=== PATIENT | female | born 1950 | race Caucasian/White ===

== ENCOUNTER → 2017-11-16 14:50 | Outpatient (CLI) | payer MEDICARE, BC, SELFPAY ==
--- NOTE | 2017-11-16 15:40 | EKG12_ITS ---
Test Reason : PRE OP Blood Pressure : / mmHG Vent. Rate : 067 BPM Atrial Rate : 067 BPM P-R Int : 160 ms QRS Dur : 090 ms QT Int : 400 ms P-R-T Axes : 023 027 065 degrees QTc Int : 422 ms Sinus rhythm with Premature atrial complexes Otherwise normal ECG Confirmed by CLARENCE PARTIDA, NOHEMI ([id number]), mapping editor LISE GUAN ([id number]) on 11/17/2017 2:30:19 PM Referred By: Marcus Peterson Confirmed By:NOHEMI LIMA MD
[2017-11-16 16:50] LABS: Hematocrit 40.7 % (37-47); Hemoglobin 13.4 g/dl (12.0-15.0); Mean Corp Hgb Conc 32.9 g/gl (32-36); Mean Corpuscular Hgb 29.2 pg (27.0-32.0); Mean Corpuscular Volume 88.7 fL (81-99); Mean Platelet Vol. 9.7 fl (6.2-12.0); Platelet Count 198 K/mm3 (150-450); RBC Distribution Width CV 13.4 % (11.6-14.6); Red Blood Count 4.59 M/mm3 (4.2-5.4); White Blood Count 6.4 K/mm3 (4.4-11.0)
[2017-11-16 17:08] LABS: Scan Indicated on CBC? Y/N NO
[2017-11-16 17:15] LABS: Anion Gap 8 (5-15); BUN 16 mg/dL (7-18); BUN/Creat Ratio 23.6 RATIO (10-20); Calcium,Total 9.1 mg/dL (8.5-10.1); Chloride 104 mmol/L (98-107); Creatinine, Serum 0.68 mg/dL (0.55-1.02); EST Glomerular Filtration Rate 92 mL/min (>60); Est Glom Filt Rate - Afr Amer 111 mL/min (>60); Glucose 104 mg/dL (74-106); Potassium 3.3 mmol/L (3.5-5.1); Sodium Level 141 mmol/L (136-145)
[2017-11-22 12:55] VITALS: BP 143/78; PULSE 67; RESP 16; TEMP 36.6; O2SAT 97; BMI 31.7
== END ==
LOC: SDC 11-22 12:22 → AC 11-22 12:25 → PAT 12-22 14:50
PROVIDERS: Family Provider Internal Medicine; PCP Internal Medicine; Visit Provider Surgery
DX: Z01.812 Encounter for preprocedural laboratory examination (principal); I10 Essential (primary) hypertension; G47.30 Sleep apnea, unspecified; Z72.0 Tobacco use
CPT/HCPCS: 36415; 80048; 85027; 93005; J7120

== ENCOUNTER 2017-12-24 08:59 | Inpatient (IN) | payer MEDICARE, BC, SELFPAY ==
[2017-12-24] VITALS (15 sets, daily range): BP systolic 125–158; BP diastolic 60–91; PULSE 65–84; RESP 16–18; TEMP 36.3–37.1; O2SAT 90–99; BMI 32.0
[2017-12-24 06:21] LABS: Hematocrit 41.1 % (37-47); Hemoglobin 13.8 g/dl (12.0-15.0); Mean Corp Hgb Conc 33.6 g/gl (32-36); Mean Corpuscular Hgb 29.3 pg (27.0-32.0); Mean Corpuscular Volume 87.3 fL (81-99); Mean Platelet Vol. 9.4 fl (6.2-12.0); Platelet Count 212 K/mm3 (150-450); RBC Distribution Width CV 13.5 % (11.6-14.6); RBC Distribution Width SD 42.1 fl (35.1-43.9); Red Blood Count 4.71 M/mm3 (4.2-5.4); White Blood Count 6.9 K/mm3 (4.4-11.0)
[2017-12-24 06:26] LABS: Scan Indicated on CBC? Y/N NO
[2017-12-24 06:50] LABS: Anion Gap 9 (5-15); BUN 12 mg/dL (7-18); BUN/Creat Ratio 17.5 RATIO (10-20); Chloride 107 mmol/L (98-107); Creatinine, Serum 0.69 mg/dL (0.55-1.02); EST Glomerular Filtration Rate 91 mL/min (>60); Est Glom Filt Rate - Afr Amer 110 mL/min (>60); Estimated Creatinine Clearance 47.14 ml/min; Glucose 110 mg/dL (74-106); Potassium 3.1 mmol/L (3.5-5.1); Sodium Level 141 mmol/L (136-145)
--- NOTE | 2017-12-24 07:07 | PCM.DC.GS ---
Discharge Diet: Light diet - advance as tolerated - if you have questions about your diet instructions, please talk to you doctor. Discharge Activity: May Not Drive - for 1 week or while taking narcotic pain medicine. May shower in (days): 1 Lifting Restrictions: 10 pounds Call your doctor if your incision/area has: Continuous Slow Oozing, Sudden Increased Bleeding, Increased Pain/ Swelling, Increased Redness, Foul Smelling Discharge Call your doctor if you observe: Fever of 101 or Higher Suture Line Care: Avoid Pulling/Pushing, Avoid Pinching/Bending Additional Dressing/Incision Instructions:: Change or remove dressing in 4 days. Leave steri-strips in place for 1 week. Allergies/Adverse Reactions: Allergies Penicillins Allergy (Verified 12/23/17 11:32) Rash Medications to take at Discharge atenolol 25 mg tablet 25 mg PO QHS 11/02/17 fenofibrate 54 mg tablet 54 mg PO QHS 11/02/17 niacin 50 mg tablet 50 mg PO QHS 11/02/17 Hydroeye 2 tab PO BID 11/15/17 Nortriptyline HCl [Pamelor] 20 mg PO QHS PRN PRN 11/15/17 Amlodipine [Norvasc] 5 mg PO DAILY 12/24/17 Hydrocodone Bitart/Apap 5-325 [[place] 5MG-325MG] 1 tablet PO Q6H PRN PRN 4 Days #15 tablet 12/24/17 Potassium Chloride [K-Dur] 20 meq PO TID 12/24/17 The following prescriptions were given: Hydrocodone Bitart/Apap 5-325 [[place] 5MG-325MG] 1 tablet PO Q6H PRN PRN 4 Days #15 tablet PRN Reason: Pain Primary Care Physician: Fannie Lopez MD [Primary Care Provider] - Please Follow Up With: Marcus Peterson MD - [phone] When: Call to make an appointment to be seen in about 10 days.
[2017-12-24] MEDS: Clindamycin 900 MG/50 ML BAG 75 MG IV (07:14)
--- NOTE | 2017-12-24 07:15 | HERN_PTH ---
PATIENT: AZAM REDDY LOC: MS3 U#:[id number] AGE/SX: 67/F ROOM: MS303 RE12/26/[address]: Dr. Marcus Peterson MD : [id number] BED: 1 DIS: 12/27/2017 SPEC #: [id number] RECD: 12/24/17 11:31 STATUS: EDNA DANIELDeidra #: [id number] KARLA: 12/24/17 07:[address]: Marcus Peterson DEPT: SURGICAL PATHOLOGY RECD BY: Yahir Shen ENTERED: 12/24/17 11:31 SP TYPE: Hernia OTHR DR: Dr. Fannie Lopez MD Tissues: HERNIA Procedures: Surgery Specimen Level II HEADER OPERATION: Laparoscopic ventral hernia repair PRE-OP DIAGNOSIS: Ventral incisional hernia without obstruction or gangrene TISSUE SUBMITTED: Hernia sac and contents MICROSCOPIC DIAGNOSIS Ventral hernia sac, herniorrhaphy: Hernia sac with fibrosis and minimal chronic inflammation. Benign histiocytic proliferation surrounding non-polarizable material. AM:juan jose 12/27/17 MICROSCOPIC DESCRIPTION Slides are reviewed. GROSS DESCRIPTION Received in fixative is one container labeled with the patient's name and designated hernia sac and contents. The specimen consists of a piece of fibroadipose tissue measuring 6 x 5 x 1 cm. No mass lesion is identified. Cager Operator sections are submitted in one cassette. / SJ:juan jose 12/24/17 TC:5 CPT: 12009
[2017-12-24] MEDS: BUPIVACAINE LIPOSOME/PF 20 ML VIAL OPERA.SITE (07:33)
[2017-12-24] MEDS: Bupivacaine Mpf 0.5% 30 ML VIAL (08:45)
--- NOTE | 2017-12-24 08:53 | PCM.OPRPT ---
Problem List (1) Ventral incisional hernia without obstruction or gangrene Status: Acute Report of Operation Date of Procedure: 12/24/17 Pre-Operative Diagnosis: Ventral incisional hernia Post-Operative Diagnosis: Periumbilical ventral incisional hernia Surgery/Procedure Performed:: Hybrid open and laparoscopic ventral incisional herniorrhaphy with ventral light ST mesh 17.8 x 22.9 cm. Reference #[id number]. Lot number [id number]. Expiration 02/05/2019 Description of Surgical Findings:: Timeout and informed consent was obtained. 67-year-old female was taken the operating place upon the table and underwent general endotracheal intubation anesthesia. Clindamycin 900 mg were given intravenous preoperatively. The abdomen was sterilely prepped and draped. Ioban draping was utilized as well. Patient had a complex multi-defect ventral incisional hernia based at the umbilicus based upon previous colon surgery performed elsewhere. Superior the umbilicus a vertical incision was created sharp dissection carried down through the substance tissue hernia sac was encountered unfortunately there were multiple adhesions of omentum to the sac these had to be bluntly and sharply dissected free hemostasis was obtained where indicated with 0 Vicryl ties. Then more extensive dissection was required intra-abdominal the surrounding the periphery of the incision secondary to additional omental adhesions. Electrocautery was used to assist with this finally all of those adhesions were freed up. I then partially approximated the fascia superior and inferiorly with ousjxq-la-ngntm sutures of 0 Nurolon plate. I placed a Vazquez catheter. The abdomen was insufflated with CO2 and to 500 ports were placed far laterally in the left and to far laterally on the right. The falciform ligament was incised to allow for placement of the mesh. Then a tap block was performed circumferentially around the mid abdomen all the way up to the epigastrium bilaterally. I did this with Exparel 20 cc diluted with 60 cc of saline. Compazine entire periphery under direct laparoscopic visualization. Then I placed the ventral light ST mesh. I had already placed 4 corner sutures of 2-0 Prolene. The mesh was unfurled. Using a grainy needle and stab incisions the 4 corners were parachuted up to the abdominal wall and secured in place. Absolutely perfect approximation position was achieved. I used secure tack at the periphery at about 2 cm intervals to secure the mesh and had several attacks left over to approximate the mesh centrally to avoid seroma formation. Excellent coverage of the defect area had been achieved. The secure strap was lot number [id number] for each of them. I removed the Vazquez catheter at the umbilicus and repaired that final defect with a ikltun-kp-oqhle suture of 0 Nurolon. The abdomen was allowed to deflate of CO2. The skin edges approximated up to 4 Monocryl subdermal stitches. Cottonball Telfa and OpSite dressing placed at the umbilicus. Telfa OpSite to the other dressings. Sponge instrument and needle counts were reported to the surgeon to be correct. Blood loss was very minimal. There were no apparent complications and she was taken to the recovery room in condition. Marcus Peterson M.D., F.A.C.S.
--- NOTE | 2017-12-24 08:58 | OP.PCM_ITS ---
Problem List (1) Ventral incisional hernia without obstruction or gangrene Status: Acute Report of Operation Date of Procedure: 12/24/17 Pre-Operative Diagnosis: Ventral incisional hernia Post-Operative Diagnosis: Periumbilical ventral incisional hernia Surgery/Procedure Performed:: Hybrid open and laparoscopic ventral incisional herniorrhaphy with ventral light ST mesh 17.8 x 22.9 cm. Reference #[id number]. Lot number [id number]. Expiration 02/05/2019 Description of Surgical Findings:: Timeout and informed consent was obtained. 67-year-old female was taken the operating place upon the table and underwent general endotracheal intubation anesthesia. Clindamycin 900 mg were given intravenous preoperatively. The abdomen was sterilely prepped and draped. Ioban draping was utilized as well. Patient had a complex multi-defect ventral incisional hernia based at the umbilicus based upon previous colon surgery performed elsewhere. Superior the umbilicus a vertical incision was created sharp dissection carried down through the substance tissue hernia sac was encountered unfortunately there were multiple adhesions of omentum to the sac these had to be bluntly and sharply dissected free hemostasis was obtained where indicated with 0 Vicryl ties. Then more extensive dissection was required intra-abdominal the surrounding the periphery of the incision secondary to additional omental adhesions. Electrocautery was used to assist with this finally all of those adhesions were freed up. I then partially approximated the fascia superior and inferiorly with rzrrrb-sb-swpxx sutures of 0 Nurolon plate. I placed a Vazquez catheter. The abdomen was insufflated with CO2 and to 500 ports were placed far laterally in the left and to far laterally on the right. The falciform ligament was incised to allow for placement of the mesh. Then a tap block was performed circumferentially around the mid abdomen all the way up to the epigastrium bilaterally. I did this with Exparel 20 cc diluted with 60 cc of saline. Compazine entire periphery under direct laparoscopic visualization. Then I placed the ventral light ST mesh. I had already placed 4 corner sutures of 2-0 Prolene. The mesh was unfurled. Using a grainy needle and stab incisions the 4 corners were parachuted up to the abdominal wall and secured in place. Absolutely perfect approximation position was achieved. I used secure tack at the periphery at about 2 cm intervals to secure the mesh and had several attacks left over to approximate the mesh centrally to avoid seroma formation. Excellent coverage of the defect area had been achieved. The secure strap was lot number [id number] for each of them. I removed the Vazquez catheter at the umbilicus and repaired that final defect with a hkmigt-wq-veoyp suture of 0 Nurolon. The abdomen was allowed to deflate of CO2. The skin edges approximated up to 4 Monocryl subdermal stitches. Cottonball Telfa and OpSite dressing placed at the umbilicus. Telfa OpSite to the other dressings. Sponge instrument and needle counts were reported to the surgeon to be correct. Blood loss was very minimal. There were no apparent complications and she was taken to the recovery room in condition. Marcus Peterson M.D., F.A.C.S.
--- NOTE | 2017-12-24 09:17 | NURSING ---
ANESTHESIA MEDICATED PT. WITH 50MCG OF FENTANYL UPON COMPLETION OF SURGERY.
[2017-12-24] MEDS: Ketorolac 15 MG/ML Vial IV (10:32)
[2017-12-24] MEDS: Lactated Ringers 1,000 ML 60 ML IV ×2 (11:05→17:03)
--- NOTE | 2017-12-24 17:54 | PCM.PN.SRG ---
Subjective: Pt c/o pain despite extensive nerve blocks - Physical Exam Vital Signs Temp Pulse Resp BP Pulse Ox 98.6 F 84 18 125/60 H 93 12/24/17 14:44 12/24/17 14:44 12/24/17 14:44 12/24/17 14:44 12/24/17 14:44 Oxygen Flow Rate (L/min) 3 Oxygen Delivery Method Nasal Cannula Weight: 186 lb 11.704 oz Body Mass Index (BMI) 32.0 Intake and Output for Last 24 Hours 12/22/17 12/23/17 12/24/17 23:59 23:59 23:59 Intake Total 1973 Output Total 150 / 150 Balance 1824 / 1824 Laboratory Tests Past 24 Hrs 12/24/17 12/24/17 06:15 06:15 WBC 6.9 RBC 4.71 Hgb 13.8 Hct 41.1 MCV 87.3 MCH 29.3 MCHC 33.6 RDW 13.5 RDW Differential 42.1 Plt Count 212 MPV 9.4 Sodium 141 Potassium 3.1 L Chloride 107 Carbon Dioxide 25.0 Anion Gap 9 BUN 12 Creatinine 0.69 Estim Creat Clear Calc 47.14 Est GFR (MDRD) Af Amer 110 Est GFR (MDRD) Non-Af 91 BUN/Creatinine Ratio 17.5 Glucose 110 H Calcium 9.0 Medical Necessity - Tobacco Use Smoking Status: Former smoker Assessment/Plan Will offer anxiolytics and NSAIDS Pt encouraged to mobilize
[2017-12-24] MEDS: LORazepam 2 MG/ML Syringe 0.5 MG IV (17:57)
[2017-12-24] MEDS: HYDROmorphone 1 MG/ML Syringe IV ×2 (19:35→23:22)
--- NOTE | 2017-12-24 20:10 | NURSING ---
Pt up to bathroom. Yelling/screaming when assisted back to bed. C/O horrible pain Gave dilaudid for pain. Pain reevaluated after 15 minutes, pt sleeping. No distress noted. Continuous Spo2 on.
[2017-12-24] MEDS: Atenolol 25 MG Tablet PO (22:36)
[2017-12-24] MEDS: Fenofibrate 48 MG Tablet PO (22:36)
[2017-12-25 02:20] VITALS: BP 143/75; PULSE 76; RESP 18; TEMP 36.7; O2SAT 94
[2017-12-25] MEDS: Ketorolac 15 MG/ML Vial IV ×2 (02:40→12:57)
[2017-12-25] MEDS: HYDROmorphone 0.5 MG/0.5 ML SYRINGE IV (05:43)
--- NOTE | 2017-12-25 06:17 | PCM.PN.SRG ---
Subjective: Pt was very painful yesterday--better today. No nausea - Physical Exam Lungs: - - shallow, clear Abdomen: Soft, Hypoactive Bowel Sounds, Distended Vital Signs Temp Pulse Resp BP Pulse Ox 98.0 F 76 18 143/75 H 94 12/25/17 02:20 12/25/17 02:20 12/25/17 02:20 12/25/17 02:20 12/25/17 02:20 Oxygen Flow Rate (L/min) 4 Oxygen Delivery Method Nasal Cannula Weight: 186 lb 11.704 oz Body Mass Index (BMI) 32.0 Intake and Output for Last 24 Hours 12/23/17 12/24/17 12/25/17 23:59 23:59 23:59 Intake Total 2478 / 2478 760 / 760 Output Total 300 / 300 350 / 350 Balance 2178 / 2178 410 / 410 Laboratory Tests Past 24 Hrs 12/24/17 12/24/17 06:15 06:15 WBC 6.9 RBC 4.71 Hgb 13.8 Hct 41.1 MCV 87.3 MCH 29.3 MCHC 33.6 RDW 13.5 RDW Differential 42.1 Plt Count 212 MPV 9.4 Sodium 141 Potassium 3.1 L Chloride 107 Carbon Dioxide 25.0 Anion Gap 9 BUN 12 Creatinine 0.69 Estim Creat Clear Calc 47.14 Est GFR (MDRD) Af Amer 110 Est GFR (MDRD) Non-Af 91 BUN/Creatinine Ratio 17.5 Glucose 110 H Calcium 9.0 Medical Necessity - Tobacco Use Smoking Status: Former smoker Assessment/Plan Pt needs to mobilize and use IS MUCH encouragement offered Possible discharge later today
[2017-12-25] MEDS: Enoxaparin 40 MG/0.4 ML Syringe SC (06:43)
[2017-12-25 07:59] VITALS: O2SAT 94
[2017-12-25 08:20] VITALS: BP 134/78; PULSE 75; RESP 18; TEMP 36.9; O2SAT 92
[2017-12-25] MEDS: Lactated Ringers 1,000 ML 30 ML IV (09:53)
[2017-12-25] MEDS: amLODIPine 5 MG Tablet PO (09:54)
[2017-12-25] MEDS: HYDROcodone Bitartrate/Apap 5/325 Tablet PO ×2 (09:54→16:09)
--- NOTE | 2017-12-25 10:46 | NURSING ---
Explained to pt importance of early ambulation to prevent post op complications. Also encouraged use of IS, pt able to provide appropriate demonstration. Encouraged to use 10x/hour.
--- NOTE | 2017-12-25 12:02 | NURSING ---
Called and spoke with Dr Peterson regarding pt's progress throughout morning. Explained to him that pt is still experiencing significant pain with movement and that breaths become shallow when pt is in pain. When pt is resting in bed, she states her pain is near 0. Pt has been started on [place] 2 tabs as ordered; however, pt still requests IV pain medication for breakthrough pain. Dr Peterson states ok to continue to give IV meds if pt needs them. Pt has been up to chair this morning for 1.5 hours and ambulated in hallway. Encouraged pt to use IS every hour. Pt currently back in bed, encouraged pt to get up for lunch.
[2017-12-25] MEDS: 0.9% NaCl Peripheral Flush Adult/Peds IV (12:57)
--- NOTE | 2017-12-25 13:03 | NURSING ---
Pt found ambulating in hallway with daughter. Pt's pulse ox reading on RA 83%. Pt denies feeling SOB, denies chest pain. Applied O2 via portable tank so pt could finish her walk. Pulse ox increased to 92% on 4LNC
[2017-12-25 15:00] VITALS: BP 129/60; PULSE 78; RESP 16; TEMP 36.9; O2SAT 95
[2017-12-25 19:48] VITALS: BP 160/85; PULSE 88; RESP 18; TEMP 36.6; O2SAT 93
[2017-12-25] MEDS: Lactulose 20 GM/30 ML UDC PO (21:01)
[2017-12-25] MEDS: Atenolol 25 MG Tablet PO (21:01)
[2017-12-25] MEDS: Fenofibrate 48 MG Tablet PO (21:01)
[2017-12-25 21:55] VITALS: O2SAT 92
[2017-12-26] VITALS (11 sets, daily range): BP systolic 150–163; BP diastolic 73–96; PULSE 70–91; RESP 16–18; TEMP 35.9–37.7; O2SAT 88–95
[2017-12-26] MEDS: Ketorolac 15 MG/ML Vial IV ×2 (01:47→20:36)
[2017-12-26] MEDS: Acetaminophen/Codeine #3 Tablet PO ×2 (02:23→20:36)
[2017-12-26] MEDS: Enoxaparin 40 MG/0.4 ML Syringe SC (05:04)
--- NOTE | 2017-12-26 06:07 | PCM.PN.SRG ---
Subjective: Pt c/o gas pains and nausea. Still on oxygen - Physical Exam General: Alert, Oriented x3 Lungs: Clear to auscultation, - - diminished in bases Abdomen: Bowel Sounds Present, Soft, Distended, Tender Vital Signs Temp Pulse Resp BP Pulse Ox 99.8 F H 82 18 155/96 H 92 12/26/17 02:19 18 02:19 18 02:19 12/26/17 02:19 12/26/17 02:19 Oxygen Flow Rate (L/min) 4 Oxygen Delivery Method Nasal Cannula Weight: 186 lb 11.704 oz Body Mass Index (BMI) 32.0 Intake and Output for Last 24 Hours 12/24/17 12/25/17 12/26/17 23:59 23:59 23:59 Intake Total 2478 / 2478 2734 / 2734 1056 / 1056 Output Total 300 / 300 350 / 350 Balance 2178 / 2178 2384 / 2384 1056 / 1056 Medical Necessity - Tobacco Use Smoking Status: Former smoker Assessment/Plan Pt is passing significant flatus but is distended States pain better Still on oxygen Will advance diet Hopeful discharge later today May need home oxygen
[2017-12-26] MEDS: Ondansetron 4 MG/2 ML Vial IV (09:28)
[2017-12-26] MEDS: amLODIPine 5 MG Tablet PO (09:30)
[2017-12-26] MEDS: HYDROcodone Bitartrate/Apap 5/325 Tablet PO (13:27)
--- NOTE | 2017-12-26 14:36 | RAD_ITS ---
STUDY: X-RAY - ABDOMEN/PELVIS REASON FOR EXAM: Female, 67 years old. Abdominal pain after hernia repair. TECHNIQUE: AP supine and upright views of the abdomen and pelvis. COMPARISON: Radiographs of the chest and abdomen dated September 22, 2007. FINDINGS: Normal visualized lung bases. There are multiple air-fluid levels in the upper abdomen suggesting possible ileus or bowel obstruction. There is no demonstrated free abdominal air. There is no obvious organomegaly, mass or pathologic calcifications. Normal soft tissue structures. Normal visualized osseous structures. RAD/Abd Decub and/or Erect(Portabl IMPRESSION: Possible ileus of the upper abdomen versus small bowel obstruction. Electronically Signed: Faby Whipple MD at 15:35 EDT , Service support ,
--- NOTE | 2017-12-26 15:07 | RAD_ITS ---
STUDY: X-RAY CHEST REASON FOR EXAM: Female, 67 years old. Shortness of breath status post hernia repair. TECHNIQUE: PA and lateral views of the chest. COMPARISON: February 22, 2008. FINDINGS: Right lower lung airspace opacities. There is left upper lung granuloma. There is no demonstrated pleural abnormality. There is mild cardiac enlargement. Normal mediastinum and kannan. Normal visualized pulmonary arteries. Normal visualized aortic arch and descending thoracic aorta. There are diffuse degenerative changes of the visualized thoracic spine. Normal visualized ribs, clavicles, and shoulders. There is no demonstrated abnormality of the visualized soft tissue structures of the upper abdomen. RAD/Chest PA and Lateral IMPRESSION: Right lower lung infiltrate. Electronically Signed: Devonte Ashley MD at 15:46 EDT , Service support ,
[2017-12-26 15:09] LABS: Absolute Neutrophil Count 7.7 X10^3/uL (2.0-7.7); Basophil# 0.01 X10^3/uL; Basophil% 0.1 % (0-1); Eosinophil# 0.02 X10^3/uL; Eosinophils% 0.2 % (0-5); Hematocrit 38.3 % (37-47); Hemoglobin 12.6 g/dl (12.0-15.0); Lymphocyte % 13.7 % (19-41); Mean Corp Hgb Conc 32.9 g/gl (32-36); Mean Corpuscular Hgb 29.1 pg (27.0-32.0); Mean Corpuscular Volume 88.5 fL (81-99); Mean Platelet Vol. 9.8 fl (6.2-12.0); Monocyte# 1.04 X10^3/uL; Monocyte% 10.2 % (0-10); Neutrophil # 7.73 X10^3/uL (2.7-7.7); Neutrophil % 75.6 % (47-70); POSITIVE COUNT NO; POSITIVE DIFFERENTIAL NO; POSITIVE MORPHOLOGY NO; Platelet Count 192 K/mm3 (150-450); RBC Distribution Width CV 13.5 % (11.6-14.6); RBC Distribution Width SD 43.7 fl (35.1-43.9); Red Blood Count 4.33 M/mm3 (4.2-5.4); White Blood Count 10.2 K/mm3 (4.4-11.0)
[2017-12-26 15:20] LABS: Anion Gap 8 (5-15); BUN 8 mg/dL (7-18); BUN/Creat Ratio 11.4 RATIO (10-20); Calcium,Total 8.9 mg/dL (8.5-10.1); Chloride 104 mmol/L (98-107); EST Glomerular Filtration Rate 89 mL/min (>60); Est Glom Filt Rate - Afr Amer 107 mL/min (>60); Estimated Creatinine Clearance 47.14 ml/min; Glucose 142 mg/dL (74-106); Potassium 3.6 mmol/L (3.5-5.1); Sodium Level 138 mmol/L (136-145)
[2017-12-26] MEDS: Furosemide 20 MG/2 ML VIAL IV (16:57)
[2017-12-26] MEDS: 0.9% NaCl Peripheral Flush Adult/Peds IV (16:57)
[2017-12-26] MEDS: Fenofibrate 48 MG Tablet PO (20:39)
[2017-12-26] MEDS: Atenolol 25 MG Tablet PO (20:39)
[2017-12-27 03:03] VITALS: BP 140/65; PULSE 68; RESP 16; TEMP 37.1; O2SAT 91
[2017-12-27 05:00] VITALS: BP 151/76; PULSE 75; PULSE 76; RESP 16; RESP 18; TEMP 37.2; O2SAT 90
[2017-12-27] MEDS: Enoxaparin 40 MG/0.4 ML Syringe SC (05:44)
--- NOTE | 2017-12-27 06:00 | PCM.PN.SRG ---
Subjective: Pt feeling better today Had stool yesterday Not much appetite Oxygen saturation improved with furosemide yesterday. IVF held - Physical Exam Lungs: - - slight rales on right Abdomen: Bowel Sounds Present, Soft, Non Tender Vital Signs Temp Pulse Resp BP Pulse Ox 98.9 F 75 18 151/76 H 90 12/27/17 05:00 12/27/17 05:00 12/27/17 05:00 12/27/17 05:00 12/27/17 05:00 Oxygen Flow Rate (L/min) [At 2 REST on Room Air] Oxygen Flow Rate (L/min) 4 Oxygen Delivery Method Nasal Cannula Weight: 186 lb 11.704 oz Body Mass Index (BMI) 32.0 Intake and Output for Last 24 Hours 12/25/17 12/26/17 12/27/17 23:59 23:59 23:59 Intake Total 2734 / 2734 1984 120 / 120 Output Total 350 / 350 Balance 2384 / 2384 1984 120 / 120 Laboratory Tests Past 24 Hrs 12/26/17 12/26/17 14:58 14:58 WBC 10.2 RBC 4.33 Hgb 12.6 Hct 38.3 MCV 88.5 MCH 29.1 MCHC 32.9 RDW 13.5 RDW Differential 43.7 Plt Count 192 MPV 9.8 Immature Gran % (Auto) 0.200 Neut % (Auto) 75.6 H Lymph % (Auto) 13.7 L [place] % (Auto) 10.2 H Eos % (Auto) 0.2 Baso % (Auto) 0.1 Absolute Neuts (auto) 7.7 Absolute Lymphs (auto) 1.40 Total Counted Not Reportable Sodium 138 Potassium 3.6 Chloride 104 Carbon Dioxide 26.0 Anion Gap 8 BUN 8 Creatinine 0.70 Estim Creat Clear Calc 47.14 Est GFR (MDRD) Af Amer 107 Est GFR (MDRD) Non-Af 89 BUN/Creatinine Ratio 11.4 Glucose 142 H Calcium 8.9 Medical Necessity - Tobacco Use Smoking Status: Former smoker Assessment/Plan Again encouraged IS and mobilization. Pt again in bed this a.m. Will give more furosemide Again encouraged to be OOB
[2017-12-27] MEDS: Furosemide 20 MG/2 ML VIAL IV (06:17)
[2017-12-27] MEDS: Ketorolac 15 MG/ML Vial IV (06:17)
[2017-12-27 07:39] VITALS: BP 148/88; PULSE 72; RESP 18; TEMP 37.1; O2SAT 97
[2017-12-27 08:01] VITALS: RESP 18; O2SAT 97
--- NOTE | 2017-12-27 10:45 | CASEMGMT ---
BRETT BARAHONA Face to Face with patient for initial transition planning/care coordination assessment. RN CM introduced self and role at [facility]. Patient sitting in chair, alert and oriented. Patient willing to participate in assessment and is able to answer all questions appropriately. Care providers, pharmacy, and demographics verified. Patient wishes to discharge home, denies need for home health at this time. Patient states that she has a CPap at home. Pat states she has no further needs or concerns at this time. CM to follow for discharge planning needs that may arise. Disposition Plan: Patient to discharge home with family support and follow-up plans in place.
--- NOTE | 2017-12-27 10:55 | NURSING ---
pt has been off o2 for over 1 hour, pt ambulatory in hallway nnumerous times, using I.S. hourly walking POX on room air is 93%, crackles only heard, posteriorly in bases
--- NOTE | 2017-12-27 15:28 | PCM.DC.SUM ---
Discharge Date and Diagnosis Date of Admission: 12/24/17 Date of Discharge: 12/27/17 - Primary Discharge Diagnosis Ventral hernia - Secondary Discharge Diagnosis Chronic Problems (Last Reviewed 12/13/17 @ 14:56 by Savannah Plata) Hypertension (Chronic) Hospital Course and Treatment Operations: herniorrhaphy - Laparoscopic and open incisional ventral hernia repair with mesh Summary of Care Provided: The patient is a 67 year old F who presented for an elective ventral incisional hernia repair. Dr. Peterson performed a laparoscopic and open incisional ventral hernia repair on 12/24/17. Patient tolerated the procedure well. Patient was noted to have difficulty with her oxygen level dropping when up and ambulating. Patient also had bilateral rales. She was given two doses of Furosemide. Upon discharge, patient's oxygen saturation remained normal when testing for home O2. She denies chest pain, shortness of breath. She notes abdominal discomfort with movement. She is tolerating a diet well. She denies fever. She is urinating well. She has positive flatus. Patient is instructed to follow-up in our office post-operatively. Discharge Diet: Light diet - advance as tolerated - if you have questions about your diet instructions, please talk to you doctor. Discharge Activity: May Not Drive - for 1 week or while taking narcotic pain medicine. May shower in (days): 1 Call your doctor if your incision/area has: Continuous Slow Oozing, Sudden Increased Bleeding, Increased Pain/ Swelling, Increased Redness, Foul Smelling Discharge Call your doctor if you observe: Fever of 101 or Higher Suture Line Care: Avoid Pulling/Pushing, Avoid Pinching/Bending Additional Dressing/Incision Instructions:: Change or remove dressing in 4 days. Leave steri-strips in place for 1 week. Home Medications: Medications to take at Discharge atenolol 25 mg tablet 25 mg PO QHS 11/02/17 fenofibrate 54 mg tablet 54 mg PO QHS 11/02/17 niacin 50 mg tablet 50 mg PO QHS 11/02/17 Hydroeye 2 tab PO BID 11/15/17 Nortriptyline HCl [Pamelor] 20 mg PO QHS PRN PRN 11/15/17 Amlodipine [Norvasc] 5 mg PO DAILY 12/24/17 Hydrocodone Bitart/Apap 5-325 [[place] 5MG-325MG] 1 tablet PO Q6H PRN PRN 4 Days #15 tablet 12/24/17 Potassium Chloride [K-Dur] 20 meq PO TID 12/24/17 Oxygen, Home [Home Oxygen] 2 lpm NASAL CONT 3 Days #1 unit 12/26/17 Following Prescrptions Were Given to Patient: Hydrocodone Bitart/Apap 5-325 [[place] 5MG-325MG] 1 tablet PO Q6H PRN PRN 4 Days #15 tablet PRN Reason: Pain Oxygen, Home [Home Oxygen] 2 lpm NASAL CONT 3 Days #1 unit Primary Care Physician: Fannie Lopez MD [Primary Care Provider] - Please Follow Up With: Marcus Peterson MD - [phone] When: Call to make an appointment to be seen in about 10 days. Disposition: Home Minutes spent on discharge:: 25 Patient Condition:: Stable Medical Necessity - Tobacco Use Smoking Status: Former smoker Meaningful Use Info Meaningful Use Diagnoses (Choose all that apply): None applicable Code Visit Inpatient E&M: 15702 Disch Hosp
--- NOTE | 2017-12-27 15:35 | DS.PCM_ITS ---
Discharge Date and Diagnosis Date of Admission: 12/24/17 Date of Discharge: 12/27/17 - Primary Discharge Diagnosis Ventral hernia - Secondary Discharge Diagnosis Chronic Problems (Last Reviewed 12/13/17 @ 14:56 by Savannah Plata) Hypertension (Chronic) Hospital Course and Treatment Operations: herniorrhaphy - Laparoscopic and open incisional ventral hernia repair with mesh Summary of Care Provided: The patient is a 67 year old F who presented for an elective ventral incisional hernia repair. Dr. Peterson performed a laparoscopic and open incisional ventral hernia repair on 12/24/17. Patient tolerated the procedure well. Patient was noted to have difficulty with her oxygen level dropping when up and ambulating. Patient also had bilateral rales. She was given two doses of Furosemide. Upon discharge, patient's oxygen saturation remained normal when testing for home O2. She denies chest pain, shortness of breath. She notes abdominal discomfort with movement. She is tolerating a diet well. She denies fever. She is urinating well. She has positive flatus. Patient is instructed to follow-up in our office post-operatively. Discharge Diet: Light diet - advance as tolerated - if you have questions about your diet instructions, please talk to you doctor. Discharge Activity: May Not Drive - for 1 week or while taking narcotic pain medicine. May shower in (days): 1 Call your doctor if your incision/area has: Continuous Slow Oozing, Sudden Increased Bleeding, Increased Pain/ Swelling, Increased Redness, Foul Smelling Discharge Call your doctor if you observe: Fever of 101 or Higher Suture Line Care: Avoid Pulling/Pushing, Avoid Pinching/Bending Additional Dressing/Incision Instructions:: Change or remove dressing in 4 days. Leave steri-strips in place for 1 week. Home Medications: Medications to take at Discharge atenolol 25 mg tablet 25 mg PO QHS 11/02/17 fenofibrate 54 mg tablet 54 mg PO QHS 11/02/17 niacin 50 mg tablet 50 mg PO QHS 11/02/17 Hydroeye 2 tab PO BID 11/15/17 Nortriptyline HCl [Pamelor] 20 mg PO QHS PRN PRN 11/15/17 Amlodipine [Norvasc] 5 mg PO DAILY 12/24/17 Hydrocodone Bitart/Apap 5-325 [[place] 5MG-325MG] 1 tablet PO Q6H PRN PRN 4 Days # 15 tablet 12/24/17 Potassium Chloride [K-Dur] 20 meq PO TID 12/24/17 Oxygen, Home [Home Oxygen] 2 lpm NASAL CONT 3 Days #1 unit 12/26/17 Following Prescrptions Were Given to Patient: Hydrocodone Bitart/Apap 5-325 [[place] 5MG-325MG] 1 tablet PO Q6H PRN PRN 4 Days # 15 tablet PRN Reason: Pain Oxygen, Home [Home Oxygen] 2 lpm NASAL CONT 3 Days #1 unit Primary Care Physician: Fannie Lopez MD [Primary Care Provider] - Please Follow Up With: Marcus Peterson MD - [phone] When: Call to make an appointment to be seen in about 10 days. Disposition: Home Minutes spent on discharge:: 25 Patient Condition:: Stable Medical Necessity - Tobacco Use Smoking Status: Former smoker Meaningful Use Info Meaningful Use Diagnoses (Choose all that apply): None applicable Code Visit Inpatient E&M: 68654 Disch Hosp
== END 2017-12-27 12:30 | disposition home or self-care (01) | DRG 355 ==
LOC: MS3 09:08
PROVIDERS: Anesthesiology; Admitting Provider Surgery; Family Provider Internal Medicine; PCP Internal Medicine; Visit Provider Surgery
PROC: 0WQF4ZZ Repair Abdominal Wall, Percutaneous Endoscopic Approach (ICD-10-PCS; principal; 2017-12-24 06:55)
DX: K43.2 Incisional hernia without obstruction or gangrene (principal); I10 Essential (primary) hypertension; Z87.891 Personal history of nicotine dependence; R11.0 Nausea; R09.89 Other specified symptoms and signs involving the circulatory and respiratory systems
CPT/HCPCS: 36415; 71046; 74019; 80048; 85025; 85027; 88302; 94667; 94762; 99251; J7120; A4216; C1781; G0463; J1940; J2405; J3490

== ENCOUNTER → 2018-01-10 14:14 | Outpatient (CLI) | payer MEDICARE, BC, SELFPAY ==
[2018-01-10 14:22] LABS: Bacteria 0 SEEN /hpf (None Seen); Mucous, Urine 0 SEEN /hpf (<or=2+); Red Blood Cells-Urine 0 SEEN /hpf (0-5); Squamous Epithelial Cells - UA 0 SEEN /hpf (5-10); White Blood Cells 0 SEEN /hpf (0-5)
[2018-01-10 15:34] LABS: Color, Urine Yellow (Yellow); Glucose, Dipstick Normal (Normal); Ketone-Dipstick Negative (Negative); Leukocyte Esterase-Dipstick Negative /ul (Negative); Nitrite-Dipstick Negative (Negative); Occult Blood-Urine Negative /ul (Negative); Protein-Dipstick 15 mg/dl (Negative); Urine Bilirubin Dipstick Negative (Negative); Urine Clarity Clear (Clear); Urine Urobilinogen Normal (Normal)
== END ==
PROVIDERS: Family Provider Internal Medicine; PCP Internal Medicine; Visit Provider Physician Assistant
DX: K43.2 Incisional hernia without obstruction or gangrene (principal); R30.0 Dysuria
CPT/HCPCS: 81001

== ENCOUNTER 2018-09-01 13:33 | Emergency (ER) | payer MEDICARE, BC, SELFPAY ==
[2018-09-01 13:34] VITALS: BP 167/83; PULSE 70; RESP 17; TEMP 36.4; O2SAT 99; BMI 31.8
--- NOTE | 2018-09-01 13:52 | EKG12_ITS ---
Test Reason : DYSRHYTHMIA Blood Pressure : / mmHG Vent. Rate : 061 BPM Atrial Rate : 061 BPM P-R Int : 160 ms QRS Dur : 100 ms QT Int : 454 ms P-R-T Axes : 019 051 075 degrees QTc Int : 457 ms Normal sinus rhythm Normal ECG Confirmed by OTF PARTIDA, MANUELA ([id number]), business editor MORENA WILKERSON ([id number]) on 09/05/2018 9:38:55 AM Referred By: BEE Confirmed By:MANUELA VANESSA MD
--- NOTE | 2018-09-01 13:52 | CT_ITS ---
STUDY: CT BRAIN WITHOUT CONTRAST REASON FOR EXAM: Female, 67 years old. Dizziness. RADIATION DOSAGE (If Supplied By Facility): CTDIvol = ( 44.99 ) mGy, DLP = ( 796.11 ) mGycm TECHNIQUE: Transaxial CT imaging of the brain was performed without administration of intravenous contrast material. Individualized dose optimization techniques were used for this CT. COMPARISON: 02/22/2008. FINDINGS: Normal soft tissue structures. Normal calvarium. Normal size ventricles and extra-axial spaces for the patient's age. Normal white matter tracts of the cerebral hemispheres. Normal basal ganglia and thalami. Normal brainstem. Normal cerebellum. There is no intracranial hemorrhage. There are no findings of an acute ischemic infarction. Normal visualized paranasal sinuses. CT/Brain/Head without Contrast IMPRESSION: Normal unenhanced CT scan of the brain and unchanged since 02/12/2008. Electronically Signed: Jeff Hays MD at 14:37 EST , Service support ,
--- NOTE | 2018-09-01 13:55 | ED.VISSUMM ---
- ER Visit Summary Date of Service: 09/01/18 Chief Complaint: Dizziness History of Present Illness: The patient is a 67 F presenting with dizziness, nausea, unsteady gait. She states this started around 11 AM. States she woke up and was feeling normal. Around 11 AM she started having spinning sensation. She states she feels like she is drunk. She has nausea with no vomiting. She denies fever. Denies chest pain or shortness of breath. Denies numbness or weakness. Denies vision or speech changes. Denies other complaints. Physical Examination: Vitals are stable. Blood pressure 167/83, patient is afebrile. Alert no acute distress. HEENT exam is unremarkable. Neck is supple. Lungs are clear and equal bilaterally. Heart is regular rate and rhythm. Abdomen is soft nontender nondistended. Extremities are unremarkable. Skin is warm and dry. No focal neurologic deficit. NIH 0 Remainder of exam is unremarkable. Emergency Department Course and Treatment: Patient is given IV fluids, Valium, Zofran. EKG is sinus rate of 61 with no acute ischemic changes. Chest x-ray shows no acute process. CT head shows no acute process. CBC, chemistries unremarkable other than potassium 2.9, glucose 141. Troponin is negative. Patient was given potassium oral replacement. Patient is feeling improved but she continues to have vertigo and unsteady gait. Will discuss with hospitalist for admission. Patient was seen by the hospitalist in the ED. She no longer wants to stay in the hospital. Advised the possibilities of the cause of her symptoms include posterior circulation stroke. Patient prefers to go home. She has a scheduled appointment with her PCP tomorrow. She is advised signs and symptoms for which to return to the ED. She understands the risk of stroke and signed out against medical advice. She is given prescription for Zofran and Valium. She will follow up with Dr Lopez tomorrow and will return if she has any worsening symptoms. Disposition: left against medical advice Impression: Vertigo This note was generated with [employer] dictation software. It may contain incorrect words, spelling, and punctuation that were not noted in review of the chart prior to signing ED Disposition - Plan for ED Patient: Disposition: Home or Assisted Living Chief Complaint: Dizziness Instructions: ED Vertigo Unspecified Prescriptions: Ondansetron [Zofran Odt] 4 mg PO Q8H PRN PRN #10 tablet PRN Reason: Nausea Diazepam [Valium] 2 mg PO TID PRN PRN #10 tablet PRN Reason: Vertigo Referrals: Fannie Lopez MD [Primary Care Provider] -
[2018-09-01] MEDS: Ondansetron 4 MG/2 ML Vial IV (13:59)
--- NOTE | 2018-09-01 13:59 | RAD_ITS ---
STUDY: X-RAY CHEST REASON FOR EXAM: Female, 67 years old. Chest pain, shortness of breath TECHNIQUE: Portable chest COMPARISON: Chest x-ray 12/26/2017 FINDINGS: Calcified granuloma of the left upper lobe, stable. Clear lungs. Normal cardiomediastinal silhouette, kannan and pleural margins. No acute osseous or upper abdominal process. RAD/Chest 1 View (Portable) IMPRESSION: No acute cardiopulmonary process. Electronically Signed: Carl Manuel, at 15:08 EST Tel , Service support ,
[2018-09-01] MEDS: diazePAM 2 MG Tablet 4 MG PO (14:20)
[2018-09-01 14:21] LABS: Absolute Lymphocyte Count 1.35 X10^3/ul (0.83-4.51); Absolute Neutrophil Count 5.5 X10^3/uL (2.0-7.7); Basophil# 0.01 X10^3/uL; Basophil% 0.1 % (0-1); Eosinophil# 0.07 X10^3/uL; Eosinophils% 0.9 % (0-5); Hematocrit 43.2 % (37-47); Hemoglobin 14.6 g/dl (12.0-15.0); Lymphocyte # 1.35 X10^3/ul (4.0); Mean Corp Hgb Conc 33.8 g/gl (32-36); Mean Corpuscular Hgb 29.1 pg (27.0-32.0); Mean Corpuscular Volume 86.2 fL (81-99); Mean Platelet Vol. 10.1 fl (6.2-12.0); Monocyte# 0.56 X10^3/uL; Monocyte% 7.5 % (0-10); Neutrophil % 73.2 % (47-70); POSITIVE COUNT NO; POSITIVE DIFFERENTIAL NO; POSITIVE MORPHOLOGY NO; Platelet Count 169 K/mm3 (150-450); RBC Distribution Width CV 13.6 % (11.6-14.6); RBC Distribution Width SD 42.8 fl (35.1-43.9); Red Blood Count 5.01 M/mm3 (4.2-5.4); White Blood Count 7.5 K/mm3 (4.4-11.0)
[2018-09-01 14:27] LABS: Anion Gap 8 (5-15); BUN 11 mg/dL (7-18); BUN/Creat Ratio 16.2 RATIO (10-20); Chloride 104 mmol/L (98-107); Creatinine, Serum 0.68 mg/dL (0.55-1.02); EST Glomerular Filtration Rate 92 mL/min (>60); Est Glom Filt Rate - Afr Amer 111 mL/min (>60); Estimated Creatinine Clearance 45.16 ml/min; Glucose 141 mg/dL (74-106); Potassium 2.9 mmol/L (3.5-5.1); Sodium Level 137 mmol/L (136-145)
--- NOTE | 2018-09-01 15:50 | ED.DEP ---
ED Disposition - Plan for ED Patient: Chief Complaint: Dizziness Instructions: ED Vertigo Unspecified Prescriptions: Ondansetron [Zofran Odt] 4 mg PO Q8H PRN PRN #10 tablet PRN Reason: Nausea Diazepam [Valium] 2 mg PO TID PRN PRN #10 tablet PRN Reason: Vertigo Referrals: Fannie Lopez MD [Primary Care Provider] -
[2018-09-01 16:03] VITALS: BP 155/74; PULSE 68; RESP 16
[2018-09-01] MEDS: Ondansetron ODT 4 MG Tablet PO (16:23)
--- NOTE | 2018-09-01 16:55 | CCHN_ITS ---
Hospitalist Note Patient was seen and examined today in the emergency room at the request of the emergency room physician for possible admission due to complaints of ataxia and dizziness. Patient stated to this examiner it is like you are drunk in the room is spinning. This sensation started approximately 11 AM this morning abruptly and the patient's been nauseated but has not thrown up. She denies any focal motor weakness, she denies any speech impairment, and she denies any visual disturbances. Patient has no history of stroke, she has a history of hypertension, hyperlipidemia, and chronically low potassium for which she takes oral potassium. Workup in the emergency room included a CT of the brain which did not show evidence of an acute process, there is no old strokes noted either. Patient's lab showed a low potassium at 2.9, glucose at 141, otherwise her labs were unremarkable. Patient was given a total of 6 mg orally of Valium in the emergency room and IV Zofran as well as some IV fluids. Patient states that her unsteadiness was a 9 out of 10 with 10 being the worst on admission to the ER, she now states that the time of my examination that her sensation of unsteadiness is a 2 out of 10. Patient was able to get up and go to the restroom without any assistance whatsoever. The emergency room physician Dr. Ames and I had a lengthy discussion about whether to admit the patient-I did not feel the patient needed to be admitted and I felt her symptoms were more likely to be secondary to benign vertigo. Dr. Ames performed a hallpike maneuver on the patient, she did not have any evidence of nystagmus. I had a long discussion with the patient and a relative who was in the room with her who live nearby, patient stated that she felt more comfortable going home rather than being admitted to the hospital, the patient states that she knows there is a chance she could have had a small stroke but she feels she would rest better at home and she has an appointment with her family physician tomorrow. It is my opinion that the patient has benign vertigo. I have asked the patient to start on an 81 mg aspirin daily which she took today in the emergency room, I have also asked her to increase her potassium to a total of 40 mEq twice a day- she is currently taking only 60 mEq daily. I told her it was possible she had type I renal tubular acidosis, she was to discuss this with her PCP. Patient has had a low potassium for a number of years and has had to take potassium supplementation but nobody is ever explained to her exactly why she has the low potassium. Physical exam: On examination she appeared in good health and spirits. Vital signs as documented. Skin warm and dry and without overt rashes. Neck without JVD. Lungs clear. Heart exam notable for regular rhythm, normal sounds and absence of murmurs, rubs or gallops. Abdomen unremarkable and without evidence of organomegaly, masses, or abdominal aortic enlargement. Extremities nonedematous. Neuro: Cranial nerves II through XII are grossly intact, no focal motor deficits were noted, patient is able to ambulate without assistance, patient has no speech abnormalities. Sensation to pinprick and light touch are intact. 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 I discussed her care plan with Dr. Ames. Code Visit Office Visits / Consults: [id number] OP Consult L3
== END 2018-09-01 16:27 | disposition left against medical advice (07) ==
PROVIDERS: Emergency Provider Emergency Medicine; Family Provider Internal Medicine; PCP Internal Medicine
DX: R42 Dizziness and giddiness (principal); R11.0 Nausea; I10 Essential (primary) hypertension
CPT/HCPCS: 70450; 71045; 80048; 84484; 85025; 93005; 96374; 96375; 99285; J7040; J2405

== ENCOUNTER → 2019-05-16 11:31 | Outpatient (CLI) | payer MEDICARE, BC, SELFPAY ==
[2019-05-16 14:09] LABS: Absolute Lymphocyte Count 1.75 X10^3/uL (0.83-4.51); Absolute Neutrophil Count 3.4 X10^3/uL (2.0-7.7); Basophil# 0.02 X10^3/uL; Basophil% 0.3 % (0-1); Eosinophils% 3.4 % (0-5); Hematocrit 41.2 % (37-47); Hemoglobin 13.8 g/dL (12.0-15.0); Lymphocyte # 1.75 X10^3/ul (4.0); Lymphocyte % 29.4 % (19-41); Mean Corp Hgb Conc 33.5 g/dL (32-36); Mean Corpuscular Hgb 29.2 pg (27.0-32.0); Mean Corpuscular Volume 87.3 fL (81-99); Mean Platelet Vol. 10.2 fl (6.2-12.0); Monocyte# 0.61 X10^3/uL; Monocyte% 10.3 % (0-10); NRBC Flagged by Analyzer 0 % (0-5); Neutrophil # 3.36 X10^3/uL (2.7-7.7); Neutrophil % 56.4 % (47-70); Platelet Count 202 K/mm3 (150-450); RBC Distribution Width CV 13.3 % (11.6-14.6); RBC Distribution Width SD 42.4 fl (35.1-43.9); Red Blood Count 4.72 M/mm3 (4.2-5.4)
[2019-05-16 14:28] LABS: T3 Total - Triiodothyronine 0.92 ng/mL (0.6-1.81)
[2019-05-16 14:31] LABS: AST(SGOT) 22 U/L (15-37); Alanine Aminotransfer ALT/SGPT 37 U/L (13-56); Albumin, Serum 3.9 g/dL (3.2-5.0); Alkaline Phosphatase 83 U/L (45-117); Anion Gap 8 (5-15); BUN 11 mg/dL (7-18); BUN/Creat Ratio 16.4 RATIO (10-20); Calcium,Total 9.7 mg/dL (8.5-10.1); Chloride 109 mmol/L (98-107); Creatinine, Serum 0.67 mg/dL (0.55-1.02); EST Glomerular Filtration Rate 93 mL/min (>60); Est Glom Filt Rate - Afr Amer 112 mL/min (>60); Glucose 93 mg/dL (74-106); Potassium 3.2 mmol/L (3.5-5.1); Protein, Total 7.9 g/dL (6.4-8.2); Sodium Level 145 mmol/L (136-145); T4 Free Direct 0.84 ng/dL (0.76-1.46); Thyroid Stim Hormone (TSH) 1.93 uIU/mL (0.358-3.74)
[2019-05-17 11:41] LABS: Thyroid Peroxidase AB 34 IU/mL (0-34)
== END ==
PROVIDERS: Family Provider Internal Medicine; PCP Internal Medicine; Referring Provider Dermatology Pediatric Dermatology; Visit Provider Dermatology Pediatric Dermatology
DX: L80 Vitiligo (principal)
CPT/HCPCS: 36415; 80053; 84439; 84443; 84480; 85025; 86376

== ENCOUNTER → 2020-06-21 16:08 | Outpatient (CLI) | payer MEDICARE, BC, SELFPAY ==
[2020-06-21 18:12] LABS: T3 Total - Triiodothyronine 0.84 ng/mL (0.6-1.81)
[2020-06-21 18:20] LABS: T4 Free Direct 1.11 ng/dL (0.76-1.46); Thyroid Stim Hormone (TSH) 1.94 uIU/mL (0.358-3.74)
[2020-06-23 10:55] LABS: Thyroid Peroxidase AB 14 IU/mL (0-34)
== END ==
PROVIDERS: PCP Internal Medicine
DX: L82.1 Other seborrheic keratosis (principal); L81.4 Other melanin hyperpigmentation; D22.5 Melanocytic nevi of trunk; Z71.89 Other specified counseling; L57.8 Other skin changes due to chronic exposure to nonionizing radiation; L80 Vitiligo; L29.8 Other pruritus
CPT/HCPCS: 36415; 84439; 84443; 84480; 86376

== ENCOUNTER → 2021-01-22 13:41 | Outpatient (CLI) | payer MEDICARE, BC, SELFPAY ==
--- NOTE | 2021-01-22 13:44 | BI_ITS ---
MAMMOGRAPHY - BILATERAL SCREENING REASON FOR EXAM: Female, 70 years old. Routine annual screening examination. PERTINENT HISTORY: Non-contributory. TECHNIQUE: Digital bilateral breast yani (3D mammographic acquisition) in the CC and MLO projections. 2-D mediolateral oblique (MLO) and craniocaudad (CC) views of both breasts were obtained. CAD: Full Field Digital Mammography with Computer Added Detection was performed. COMPARISON: Comparison is made with prior abdomen examination dated 03/25/2016 FINDINGS: Breast Composition: The breasts are almost entirely fatty. There are no dominant masses or suspicious calcifications. Stable small benign-appearing bilateral axillary lymph nodes No other significant abnormalities are identified. There has been no significant change since the prior study. BI/SCRN MAMM (CAD)W/YANI BILAT IMPRESSION: Stable bilateral screening mammogram. Yearly follow-up mammogram recommended. (A) ASSESSMENT CATEGORY: BIRADS Category 2: Benign. A letter regarding these results will be sent to the patient by the facility within 30 days. Approximately 10% of breast cancers are not detected by mammography. A normal mammogram should not delay biopsy of a clinically suspicious abnormality. [id number] Electronically Signed: Aditya Danielson MD at 15:01 EDT , Service support ,
== END ==
PROVIDERS: PCP Family Medicine; Referring Provider Family Medicine; Visit Provider Family Medicine
DX: Z12.31 Encounter for screening mammogram for malignant neoplasm of breast (principal)
CPT/HCPCS: 77063; 77067

== ENCOUNTER → 2022-02-12 | Outpatient (CLI) | payer MEDICARE, BC, SELFPAY ==
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
== END | disposition home or self-care (01) ==
LOC: MRI 12:38
PROVIDERS: PCP Family Medicine; Visit Provider Nurse Practitioner
DX: M25.561 Pain in right knee (principal)
CPT/HCPCS: 73721

== ENCOUNTER 2022-04-17 07:31 | Day surgery (SDC) | payer MEDICARE, BC, SELFPAY ==
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
[2022-04-17 08:11] VITALS: BP 147/74; PULSE 64; RESP 16; TEMP 36.7; O2SAT 99; BMI 32.9
[2022-04-17] MEDS: Lactated Ringers 1,000 ML 15 ML IV (08:16)
[2022-04-17 09:39] VITALS: BP 114/68; BP 147/74; PULSE 63; RESP 16; TEMP 36.2; O2SAT 97
[2022-04-17 09:40] VITALS: BP 111/67; BP 147/74; PULSE 60; RESP 16; O2SAT 96
--- NOTE | 2022-04-17 09:40 | OP.CCLET_ITS ---
04/17/2022 Nikhil Moy Re : Colonoscopy procedure for Rhonda Garsia Dear Farzaneh This procedure was performed on Sunday, April 17, 2022. My impressions and recommendations are as follows: Impressions : - Non-thrombosed external hemorrhoids, non-thrombosed internal hemorrhoids and internal hemorrhoids that prolapse with straining, but spontaneously regress to the resting position (Grade II) found on digital rectal exam. - Patent functional end-to-end ileo-colonic anastomosis, characterized by healthy appearing mucosa. - Diverticulosis in the entire examined colon. - The examination was otherwise normal. - A tattoo was seen in the distal descending colon. The tattoo site appeared normal. - No specimens collected. Recommendations : - Discharge patient to home. - Resume previous diet. - Continue present medications. - Repeat colonoscopy in 5 years for surveillance. My findings are described in the full procedure note, which is enclosed. If I can be of further assistance, please feel free to contact me at Doctor phone number(s): Work: . Sincerely, Marcus Peterson MD 04/17/2022 9:40:00 AM This report has been signed electronically.
--- NOTE | 2022-04-17 09:40 | OP.COLON_ITS ---
Patient Name: Rhonda Garsia Procedure Date: 04/17/2022 9:10 AM Date of : 1950 Age: 71 Procedure: Colonoscopy Indications: High risk colon cancer surveillance: Personal history of colonic polyps Providers: Marcus Peterson MD Medicines: See the Anesthesia note for documentation of the administered medications Patient Profile: Last Colonoscopy: April 2017. Complications: No immediate complications. Procedure: Pre-Anesthesia Assessment: - Prior to the procedure, a History and Physical was performed, and patient medications and allergies were reviewed. The patient's tolerance of previous anesthesia was also reviewed. The risks and benefits of the procedure and the sedation options and risks were discussed with the patient. All questions were answered, and informed consent was obtained. Prior Anticoagulants: The patient has taken no previous anticoagulant or antiplatelet agents. ASA Grade Assessment: II - A patient with mild systemic disease. After reviewing the risks and benefits, the patient was deemed in satisfactory condition to undergo the procedure. After I obtained informed consent, the scope was passed under direct vision. Throughout the procedure, the patient's blood pressure, pulse, and oxygen saturations were monitored continuously. The colonoscope was introduced through the anus and advanced to the ileocolonic anastomosis. The colonoscopy was performed without difficulty. The patient tolerated the procedure well. The quality of the bowel preparation was good. Ileocolonic anastomosis were photographed. Scope In: 9:20:47 AM Scope Withdrawal Time 0 hours 7 minutes 2 seconds Scope Out: 9:33:10 AM Total Procedure Duration Time 0 hours 12 minutes 23 seconds Findings: The digital rectal exam findings include non-thrombosed external hemorrhoids, non-thrombosed internal hemorrhoids and internal hemorrhoids that prolapse with straining, but spontaneously regress to the resting position (Grade II). There was evidence of a prior functional end-to-end ileo-colonic anastomosis in the distal ascending colon. This was patent and was characterized by healthy appearing mucosa. Multiple diverticula were found in the entire colon. The exam was otherwise without abnormality. A tattoo was seen in the distal descending colon. The tattoo site appeared normal. Impression: - Non-thrombosed external hemorrhoids, non-thrombosed internal hemorrhoids and internal hemorrhoids that prolapse with straining, but spontaneously regress to the resting position (Grade II) found on digital rectal exam. - Patent functional end-to-end ileo-colonic anastomosis, characterized by healthy appearing mucosa. - Diverticulosis in the entire examined colon. - The examination was otherwise normal. - A tattoo was seen in the distal descending colon. The tattoo site appeared normal. - No specimens collected. Recommendation: - Discharge patient to home. - Resume previous diet. - Continue present medications. - Repeat colonoscopy in 5 years for surveillance. Procedure Code(s): --- Professional --- 13815, Colonoscopy, flexible; diagnostic, including collection of specimen(s) by brushing or washing, when performed (separate procedure) Diagnosis Code(s): --- Professional --- Z86.010, Personal history of colonic polyps K64.1, Second degree hemorrhoids K64.4, Residual hemorrhoidal skin tags Z98.0, Intestinal bypass and anastomosis status K57.30, Diverticulosis of large intestine without perforation or abscess without bleeding CPT copyright 2017 [employer] [employer]. All rights reserved. The codes documented in this report are preliminary and upon auditing clerk review may be revised to meet current compliance requirements. Marcus Peterson MD 04/17/2022 9:40:00 AM This report has been signed electronically. Number of Addenda: 0 Note Initiated On: 04/17/2022 9:10 AM
[2022-04-17 09:45] VITALS: BP 108/69; BP 147/74; PULSE 64; RESP 16; O2SAT 96
[2022-04-17 09:50] VITALS: BP 115/65; BP 147/74; PULSE 58; RESP 16; TEMP 36.3; O2SAT 94
[2022-04-17 10:15] VITALS: BP 147/74
== END 2022-04-17 10:32 | disposition home or self-care (01) ==
LOC: EN 07:32 → AC 07:34
PROVIDERS: PCP Family Medicine; Referring Provider Family Medicine; Visit Provider Surgery
PROC: 0DJD8ZZ Inspection of Lower Intestinal Tract, Via Natural or Artificial Opening Endoscopic (ICD-10-PCS; CPT 45378; principal; 2022-04-17 08:25)
DX: K62.5 Hemorrhage of anus and rectum (principal); E66.01 Morbid (severe) obesity due to excess calories; D12.3 Benign neoplasm of transverse colon; Z86.010 Personal history of colon polyps; K57.30 Diverticulosis of large intestine without perforation or abscess without bleeding; D12.0 Benign neoplasm of cecum; K64.4 Residual hemorrhoidal skin tags; Z87.891 Personal history of nicotine dependence; Z98.0 Intestinal bypass and anastomosis status; I10 Essential (primary) hypertension; G47.33 Obstructive sleep apnea (adult) (pediatric); K64.1 Second degree hemorrhoids
CPT/HCPCS: 45378; J7120; J2405

== ENCOUNTER → 2022-08-10 | Outpatient (CLI) | payer MEDICARE, BC, SELFPAY ==
--- NOTE | 2022-08-10 13:13 | BI_ITS ---
MAMMOGRAPHY - BILATERAL SCREENING REASON FOR EXAM: Female, 71 years old. Routine annual screening examination. PERTINENT HISTORY: Non-contributory. TECHNIQUE: Digital bilateral breast yani (3D mammographic acquisition) in the CC and MLO projections. 2-D mediolateral oblique (MLO) and craniocaudad (CC) views of both breasts were obtained. CAD: Full Field Digital Mammography with Computer Added Detection was performed. COMPARISON: Comparison is made with prior study dated 01/22/2021. FINDINGS: Breast Composition: The breasts are almost entirely fatty. There are no dominant masses or suspicious calcifications. Stable small benign-appearing bilateral axillary No other significant abnormalities are identified. There has been no significant change since the prior study. BI/SCRN MAMM (CAD)W/YANI BILAT IMPRESSION: Stable bilateral screening mammogram. Yearly follow-up mammogram recommended. (A) ASSESSMENT CATEGORY: BIRADS Category 2: Benign. A letter regarding these results will be sent to the patient by the facility within 30 days. Approximately 10% of breast cancers are not detected by mammography. A normal mammogram should not delay biopsy of a clinically suspicious abnormality. [id number] Electronically Signed: Aditya Danielson MD at 14:08 EDT ,
== END | disposition home or self-care (01) ==
LOC: OPBI 13:11
PROVIDERS: PCP Family Medicine; Referring Provider Family Medicine; Visit Provider Family Medicine
DX: Z12.31 Encounter for screening mammogram for malignant neoplasm of breast (principal)
CPT/HCPCS: 77063; 77067

== ENCOUNTER → 2024-01-28 | Outpatient (CLI) | payer MEDICARE, BC, SELFPAY ==
--- NOTE | 2024-01-28 13:27 | BD_ITS ---
STUDY: DUAL ENERGY X-RAY ABSORPTIOMETRY / DXA REASON FOR EXAM: Female, 73 years old. 627.8Menopausal postmenopausal BONE DENSITY REASON FOR EXAM TECHNIQUE: Bone Mineral Density (BMD) measurements of lumbar spine and bilateral hips were obtained. COMPARISON: None. FINDINGS: Lumbar Spine (L1-L4): g/cm2 (1.062) / T-score (0.3) / Z-score (2.5) Findings are suggestive of normal bone density with a low fracture risk. Left Femur Total: g/cm2 (1.202) / T-score (2.1) / Z-score (3.8) Left Femoral Neck: g/cm2 (0.943) / T-score (0.8) / Z-score (2.8) Right Femur Total: g/cm2 (1.132) / T-score (1.6) / Z-score (3.2) Right Femoral Neck: g/cm2 (0.861) / T-score (0.1) / Z-score (2.1) BD/Dexa Bone Density Study IMPRESSION: The patient is considered normal as outlined below according to World Minh Organization (WHO) criteria with a low fracture risk. Reference Information: The T-score is the number of standard deviations above or below the standard which is normal for young adults at their peak bone mineral density. The World Health Organization (WHO) interprets the T-scores as follows: Above -1 Normal bone density Between -1 and -2.5 Osteopenia Equal to / or below -2.5 Osteoporosis As a practical clinical guideline, osteopenia may be graded as follows: Mild -1 through -1.5 Moderate -1.6 through -2.0 Severe -2.1 through -2.4 The Z-score is the number of standard deviations above or below age-matched controls. A Z-score of less than -1.5 would be considered abnormal. References: 1. NIH Osteoporosis and Related Bone Diseases www osteo.org 2. International Society for Clinical Densitometry www iscd.org 3. National Osteoporosis Foundation www nof.org Electronically Signed: Aditya Danielson MD at 10:55 EDT ,
--- NOTE | 2024-01-28 13:27 | BI_ITS ---
MAMMOGRAPHY - BILATERAL SCREENING REASON FOR EXAM: Female, 73 years old. Routine annual screening examination. PERTINENT HISTORY: Non-contributory. TECHNIQUE: Digital bilateral breast yani (3D mammographic acquisition) in the CC and MLO projections. 2-D mediolateral oblique (MLO) and craniocaudad (CC) views of both breasts were obtained. CAD: Full Field Digital Mammography with Computer Added Detection was performed. COMPARISON: Comparison is made with prior examination August 10, 2022 and January 22, 2021. FINDINGS: Breast Composition: The breasts are almost entirely fatty. There are no dominant masses or suspicious calcifications. Stable bilateral fat containing axillary lymph nodes. No other significant abnormalities are identified. There has been no significant change since the prior study. BI/SCRN MAMM (CAD)W/YANI BILAT IMPRESSION: Stable bilateral screening mammogram. Yearly follow-up mammogram recommended. (A) ASSESSMENT CATEGORY: BIRADS Category 2: Benign. A letter regarding these results will be sent to the patient by the facility within 30 days. Approximately 10% of breast cancers are not detected by mammography. A normal mammogram should not delay biopsy of a clinically suspicious abnormality. [id number] Electronically Signed: Aditya Danielson MD at 15:00 EDT ,
== END | disposition home or self-care (01) ==
LOC: OPBD 13:25
PROVIDERS: PCP Internal Medicine; Referring Provider Internal Medicine; Visit Provider Internal Medicine
DX: Z12.31 Encounter for screening mammogram for malignant neoplasm of breast (principal); Z78.0 Asymptomatic menopausal state; Z13.820 Encounter for screening for osteoporosis
CPT/HCPCS: 77063; 77067; 77080

== ENCOUNTER 2025-04-17 13:51 | Emergency (ER) | payer MEDICARE, BC, SELFPAY ==
[2025-04-17 13:53] VITALS: BP 167/96; PULSE 80; RESP 18; TEMP 36.4; O2SAT 95; BMI 31.4
--- NOTE | 2025-04-17 14:41 | CT_ITS ---
PROCEDURE: BRAIN/HEAD WITHOUT CONTRAST 04/17/2025 REASON FOR EXAM: RIGHT SHOULDER WEAKNESS TECHNIQUE: BRAIN/HEAD WITHOUT CONTRAST Coronal and Sagittal reconstruction series were provided. One or more dose reduction techniques were used (e.g., Automated exposure control, adjustment of the mA and/or kV according to patient size, use of iterative reconstruction technique. RADIATION DOSE SUMMARY: DLP: 830 mGycm COMPARISON: None FINDINGS: There is no acute infarct, intracranial hemorrhage, or mass effect. There is no hydrocephalus or significant midline shift. There is mild chronic microvascular ischemic changes and mild parenchymal volume loss. No acute, depressed calvarial fractures. No large scalp hematomas. CT/Brain/Head without Contrast IMPRESSION: No acute intracranial process. Reading Location: [id number]
--- NOTE | 2025-04-17 14:42 | EKG12_ITS ---
Test Reason : BODY PAIN Blood Pressure : */* mmHG Vent. Rate : 63 BPM Atrial Rate : 63 BPM P-R Int : 182 ms QRS Dur : 88 ms QT Int : 410 ms P-R-T Axes : 27 23 64 degrees QTcB Int : 419 ms Normal sinus rhythm Normal ECG Confirmed by OTF PARTIDA, MANUELA ([id number]), sound editor RADHA CARDOZA ([id number]) on 04/19/2025 6:34:30 AM Referred By: Confirmed By: MANUELA VANESSA MD
[2025-04-17] MEDS: 0.9% Normal Saline (1000mL) 1,000 ML 1000 ML IV (14:50)
[2025-04-17 15:02] LABS: Hematocrit 38.5 % (37-47); Hemoglobin 12.7 g/dL (12.0-15.0); Immature Granulocytes Count 0.050 X10^3/uL (0.0-0.0); Mean Corp Hgb Conc 33.0 g/dL (32-36); Mean Corpuscular Volume 88.3 fL (81-99); Mean Platelet Vol. 9.5 fl (6.2-12.0); NRBC Flagged by Analyzer 0 % (0-5); Platelet Count 275 K/mm3 (150-450); RBC Distribution Width CV 13.4 % (11.6-14.6); RBC Distribution Width SD 43.6 fl (35.1-43.9); Red Blood Count 4.36 M/mm3 (4.2-5.4); White Blood Count 9.3 K/mm3 (4.4-11.0)
--- NOTE | 2025-04-17 15:05 | RAD_ITS ---
PROCEDURE: SHOULDER MIN 2 VIEWS 04/17/2025 REASON FOR EXAM: WEAKNESS TECHNIQUE: SHOULDER MIN 2 VIEWS COMPARISON: None FINDINGS: Bones: Unremarkable Joints: Normal alignment of the acromioclavicular and glenohumeral joints. Soft tissues: Soft tissues are unremarkable. Other: RAD/Shoulder min 2 Views IMPRESSION: NO ACUTE FRACTURE OR DISLOCATION. Reading Location: [facility]
--- NOTE | 2025-04-17 15:05 | RAD_ITS ---
PROCEDURE: HIPS B/L MIN 2 VIEWS W/ PELVIS 04/17/2025 REASON FOR EXAM: WEAKNESS, PAIN TECHNIQUE: HIPS B/L MIN 2 VIEWS W/ PELVIS COMPARISON: None FINDINGS: Bones: No fracture is seen. Joints: Moderate degree of joint space narrowing involving both hip joints. No fracture or dislocation. Soft tissues: Soft tissues are unremarkable. Other: RAD/Hips B/L min 2 views w/ Pelvis IMPRESSION: Degenerative changes. Reading Location: [place] [id number]
--- NOTE | 2025-04-17 15:05 | RAD_ITS ---
PROCEDURE: CHEST 1 VIEW (PORTABLE) 04/17/2025 REASON FOR EXAM: CORONARY ARTERY DISEASE TECHNIQUE: Frontal view of the chest. COMPARISON: None FINDINGS: Hardware: None Heart: Borderline cardiomegaly. Lungs: The lungs are clear. Bones: Degenerative changes are identified within the thoracic spine. Other: RAD/Chest 1 View (Portable) IMPRESSION: No Acute Findings. Reading Location: [place] [address]
--- NOTE | 2025-04-17 15:22 | EX.ED.DYSGE1 ---
HPI History of Present Illness Chief Complaint: Other, Pain/Inj Narrative Narrative: 74-year-old female presents with her sister and friend because of 2 weeks of generalized weakness, and inability to fully raise her right shoulder. She needs to have assistance in doing this. 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 She states this was diagnosed with a blood test performed by a nurse. She states she was found to have osteoarthritis not rheumatoid arthritis. Over the last 2 weeks, she describes generalized weakness, weakness of her bilateral hips and lower extremities, and difficulty moving her right shoulder. She denies any recent trauma. She states she has had occasional fever and chills, and generalized malaise and fatigue. She lives at home alone and has been unable to dress herself, and she was so weak today that she did not want to get out of bed. She is able to move her arm on the right, but unable to fully lift her arm at the shoulder. No recent trauma. She is able to raise it up with assistance, and is able to keep it there once it is elevated. It is not paralyzed. [facility] Medical History Wears glasses High cholesterol Sleep apnea CPAP (continuous positive airway pressure) dependence Acute medial meniscus tear of right knee Ventral incisional hernia without obstruction or gangrene Hypertension Tubular adenoma of colon Obstructive sleep apnea Occult blood in stools Obesity Heart murmur Home Medications ?Medication ?Instructions ?Recorded ?Last Taken ?Type atenolol 25 mg tablet 25 mg PO QHS BP 11/02/17 12/23/17 History nortriptyline 10 mg capsule 20 mg PO QHS PRN PRN Sleep 11/15/17 11/21/17 23:30 History (Pamelor) amlodipine 5 mg tablet 5 mg PO QHS 12/24/17 12/23/17 History potassium chloride 20 mEq 20 meq PO DAILY 12/24/17 12/23/17 History tablet,extended release(part/cryst) (Klor-Con M) carvedilol 25 mg tablet 25 mg PO QHS 02/02/22 Unknown History spironolactone 25 mg tablet 25 mg PO DAILY 02/02/22 Unknown History fenofibrate nanocrystallized 48 mg 1 tab PO DAILY 04/15/22 Unknown History tablet Allergy/AdvReac Type Severity Reaction Status Date / Time Penicillins Allergy Rash Verified 04/17/25 13:53 Family History Mother Colon cancer Father Diabetes Surgical History History of incisional hernia repair S/P tonsillectomy S/P right hemicolectomy S/P colonoscopy History of Social History household members: spouse housing: house Smoking Status: Never smoker second hand exposure: No alcohol intake: never substance use type: does not use caffeine: Yes what type of physical activity do you participate in: none frequency: does not exercise seatbelt use: always ROS ROS ED ROS Narrative Review of systems positive for multiple somatic complaints including fever, chills, generalized weakness, malaise and fatigue. Low energy. Difficulty with moving right shoulder. Bilateral hip pain. No cough or shortness of breath. She may have had chest pain a few days ago as well. EXAM Physical Exam Narrative Exam Narrative: Afebrile. Vital signs noted. Nontoxic-appearing. Cardiovascular examination was a regular rate and rhythm. Lungs are clear to auscultation bilaterally. Abdomen is soft, nontender, without guarding or rebound. Positive bowel sounds. Neurological examination shows her to be awake, alert, oriented, interactive, and answering questions. Musculoskeletal examination shows weakness of the right shoulder joint. She is able to raise her arms bilaterally but the right requires assistance and she has to lift up. When she has her arms outstretched in front of her, she is able to keep her arms raised and there is no pronator drift. Palpable radial pulse, right. Const Vital Signs: 04/17/25 13:53 04/17/25 14:00 04/17/25 16:00 Temperature 97.6 F L 97.9 F Temperature Source Temporal Oral Pulse Rate 80 62 Respiratory Rate 18 18 Respiratory Effort Normal Non-Labored Respiratory Pattern Normal Blood Pressure 167/96 H 159/80 H Blood Pressure Mean 119 106 Pulse Ox 95 93 Oxygen Delivery Method Room Air Room Air 04/17/25 16:01 Temperature 97.9 F Temperature Source Oral Pulse Rate Respiratory Rate Respiratory Effort Respiratory Pattern Blood Pressure Blood Pressure Mean Pulse Ox Oxygen Delivery Method MDM MDM MDM Narrative Medical decision making narrative: Differential diagnosis includes but not limited to generalized weakness secondary to dehydration versus electrolyte imbalance versus infectious process including pneumonia versus UTI. Regarding her right shoulder weakness, this may be more of a shoulder impingement versus cervical radicular pain/neuropathy versus adhesive capsulitis versus osteoarthritis. I have low clinical suspicion for dislocation or fracture as she has not had any trauma. I have low suspicion for stroke as well because it is limited secondary to the right shoulder joint and not the elbow or distally. EKG was obtained and interpreted by myself independently as normal sinus rhythm at 63 bpm without ectopy or acute ST changes. No STEMI. I reviewed her laboratory work and she has normal white count of 9.3 with hemoglobin 12.7, platelet count normal at 275. Electrolyte panel obtained and reviewed she has normal sodium of 135 with potassium 4.4, carbon dioxide low at 18.5 which is nonspecific, BUN of 23 and creatinine 0.97, glucose 101. Anion gap normal at 13. LFTs show slight elevation of her ALT at 47 which I think is nonspecific as well as alk phos slightly elevated at 187. She is not having abdominal pain or vomiting. I reviewed the radiology report of the CT of the brain and there is no acute process, no hemorrhage or mass. On my independent interpretation of her chest x-ray, there is no acute process, no pneumonia, no pneumothorax. I reviewed the radiology report which confirms my independent interpretation. I individually interpreted her right shoulder x-rays and see no evidence of fracture or dislocation. I reviewed the radiology report which also confirms my independent interpretation. Lastly, on my independent interpretation of her bilateral hip x-rays, there are degenerative changes but no fracture or dislocation. I reviewed the radiology report which confirms my independent interpretation. Upon repeat examination, patient states she was feeling okay when she first came to the ED, but now she feels warm and sweaty, and almost nauseated. She was administered ondansetron and repeat temperature checked and she is not febrile. I discussed patient with the social insurance adviser as well to see what she qualifies for regarding rehab. As it turns out, she would require a 3-day stay/admission to qualify for SNF. machine made shoe unit worker will discuss with her home health care. She declined anything currently, but was instructed to call her primary care provider should she change her mind and want to do outpatient therapy as well as home health care. Review of her urinalysis macro analysis is negative for nitrites and leukocyte esterase. While microanalysis is pending, I do not feel that she would require antibiotics. She would like to be discharged home at this time. I strongly encouraged her to have her right shoulder weakness evaluated as well by orthopedics and/or her primary care provider. Return instructions to the emergency department were reviewed. Disposition is discharged home in stable condition. History & Record Review Discussion w/independent historian: Patient and Family Additional record(s) reviewed:: Prior ED visit Lab Data Attestation: I reviewed the patient's lab results. Labs: Laboratory Results - last 24 hr 04/17/25 04/17/25 14:52 15:30 WBC 9.3 RBC 4.36 Hgb 12.7 Hct 38.5 MCV 88.3 MCH 29.1 MCHC 33.0 RDW Std Deviation 43.6 RDW Coeff of Vianney 13.4 Plt Count 275 MPV 9.5 Immature Gran % (Auto) 0.500 Neut % (Auto) 64.8 Lymph % (Auto) 23.2 Pope % (Auto) 10.1 H Eos % (Auto) 0.9 Baso % (Auto) 0.5 Absolute Neuts (auto) 6.0 Absolute Lymphs (auto) 2.16 Nucleated RBC % 0 Sodium 135 Potassium 4.4 Chloride 103 Carbon Dioxide 18.5 L Anion Gap 13 BUN 23 H Creatinine 0.97 Estim Creat Clear Calc 53.03 Est GFR (MDRD) Non-Af 61 BUN/Creatinine Ratio 23.2 H Glucose 101 H Calcium 10.3 Total Bilirubin 0.44 AST 31 ALT 47 H Alkaline Phosphatase 187 H Total Protein 7.7 Albumin 3.9 Globulin 3.8 Albumin/Globulin Ratio 1.0 Urine Color Straw Urine Clarity Clear Urine pH 6.0 Ur Specific Rowdy 1.010 Urine Protein Negative Urine Glucose (UA) Normal Urine Ketones Negative Urine Occult Blood Negative Urine Nitrite Negative Urine Bilirubin Negative Urine Urobilinogen Normal Ur Leukocyte Esterase Negative Radiography Diagnostic Testing: Clinical Impression(s) from Imaging Studies Brain CT 04/17/25 14:41 IMPRESSION: No acute intracranial process. Reading Location: [facility] Chest X-Ray 04/17/25 15:05 IMPRESSION: No Acute Findings. Reading Location: [facility]- Hip/Pelvis X-Ray 04/17/25 15:05 IMPRESSION: Degenerative changes. Reading Location: [facility] Shoulder X-Ray 04/17/25 15:05 IMPRESSION: NO ACUTE FRACTURE OR DISLOCATION. Reading Location: [place] [id number] Discharge Plan Triage Chief Complaint: Other, Pain/Inj ED Provider: Jeff Malagon Dx/Rx/DC Orders Clinical Impression: Weakness of right shoulder, Malaise and fatigue Instructions: ED Weakness Uncertain Cause Prescriptions: No Action atenolol 25 mg tablet 25 mg PO QHS carvedilol 25 mg tablet 25 mg PO QHS spironolactone 25 mg tablet 25 mg PO DAILY nortriptyline [Pamelor] 10 MG capsule 20 mg PO QHS PRN PRN (Reason: Sleep) amlodipine 5 MG tablet 5 mg PO QHS potassium chloride [Klor-Con M20] 20 MEQ tablet 20 meq PO DAILY fenofibrate nanocrystallized 48 mg tablet 1 tab PO DAILY Primary Care Provider: Christine Bowling Referrals: Gonzales Wallace MD [Med Staff - Active Staff] - As soon as possible Christine Bowling, TOOLING SPECIALIST-C [Primary Care Provider] - 1-2 Days if not improving Activity Restrictions/Additional Instructions: Follow-up with your primary care provider soon as possible. You may also need to see orthopedics regarding the weakness of your right shoulder. Print Language: Moroccan Disposition Disposition: Home, Self Care
[2025-04-17 15:57] LABS: Mucous, Urine 0 SEEN /hpf (<or=2+); Squamous Epithelial Cells - UA 0 SEEN /hpf (5-10)
[2025-04-17 16:00] VITALS: BP 159/80; PULSE 62; RESP 18; TEMP 36.6; O2SAT 93
[2025-04-17 16:01] VITALS: TEMP 36.6
[2025-04-17 16:16] LABS: Color, Urine Straw (Yellow); Glucose, Dipstick Normal (Normal); Ketone-Dipstick Negative (Negative); Leukocyte Esterase-Dipstick Negative /ul (Negative); Nitrite-Dipstick Negative (Negative); Occult Blood-Urine Negative /ul (Negative); Protein-Dipstick Negative (Negative); Specific Gravity, Urine 1.010 (1.002-1.030); Urine Bilirubin Dipstick Negative (Negative)
[2025-04-17 16:28] LABS: AST(SGOT) 31 U/L (<=31); Alanine Aminotransfer ALT/SGPT 47 U/L (<=34); Albumin, Serum 3.9 g/dL (3.4-4.8); Alkaline Phosphatase 187 U/L (35-104); Anion Gap 13 (5-15); BUN 23 mg/dL (4-19); BUN/Creat Ratio 23.2 RATIO (10-20); Calcium,Total 10.3 mg/dL (7.6-11.0); Carbon Dioxide 18.5 mmol/L (21.0-32.0); Chloride 103 mmol/L (98-108); Estimated Creatinine Clearance 53.03 ml/min (50-250); Globulin 3.8 g/dL (2.2-4.2); Glucose 101 mg/dL (70-99); Potassium 4.4 mmol/L (3.3-5.1)
[2025-04-17 16:36] VITALS: BP 151/79; PULSE 72; RESP 14; TEMP 36.6; O2SAT 99
[2025-04-17 17:28] LABS: Red Blood Cells-Urine 0-5 SEEN /hpf (0-5)
--- NOTE | 2025-04-17 21:46 | CM.ED ---
Social Work SW met with patient who stated she is having increased trouble taking care of herself at home. Patient states that she has recently been diagnosed with arthritis and fibromyalgia. Patient states she was hopeful that her mobility would increase and her pain decrease but that has not happened yet. SW reviewed services that would be able to give patient additional support. These included care home rehab, home health, and outpatient rehab services. SW answered questions about each service. Patient appreciative of information, stated that she was going to discharge home at this time and see how she progresses as she has her daughter and neighbor that are able to help as needed at this time. Angela Mendez, [employer] FINISHER HELPER, EMERGENCY DEPT TECH
== END 2025-04-17 16:52 | disposition home or self-care (01) ==
PROVIDERS: Emergency Provider Emergency Medicine; PCP Nurse Practitioner Family; Visit Provider Emergency Medicine
DX: R29.898 Other symptoms and signs involving the musculoskeletal system (principal); R53.81 Other malaise; E78.00 Pure hypercholesterolemia, unspecified; I10 Essential (primary) hypertension; Z99.89 Dependence on other enabling machines and devices; G47.33 Obstructive sleep apnea (adult) (pediatric); R53.83 Other fatigue
CPT/HCPCS: 70450; 71045; 73030; 73521; 80053; 81001; 85025; 93005; 96361; 96374; 99282; A4216; J2405

== ENCOUNTER → 2025-08-31 | Outpatient (CLI) | payer MEDICARE, BC, SELFPAY ==
--- NOTE | 2025-08-31 15:32 | RAD_ITS ---
PROCEDURE: HAND MIN 3 VIEWS 08/31/2025 REASON FOR EXAM: PAIN TECHNIQUE: Procedure Code: MARIA ELENA Modality: DX Procedure: HAND MIN 3 VIEWS Laterality: Left COMPARISON: None. FINDINGS: No acute fracture or dislocation appreciated. Alignment is anatomic. Relatively well preserved joint spaces. No osseous erosion or destruction. Grossly unremarkable soft tissues. RAD/Hand Min 3 Views IMPRESSION: No acute or aggressive osseous abnormality. Reading Location: [id number]
--- NOTE | 2025-08-31 15:33 | RAD_ITS ---
PROCEDURE: HAND MIN 3 VIEWS 08/31/2025 REASON FOR EXAM: PAIN TECHNIQUE: Procedure Code: MARIA ELENA Modality: DX Procedure: HAND MIN 3 VIEWS Laterality: Right COMPARISON: None. FINDINGS: No acute fracture or dislocation appreciated. Alignment is anatomic. Relatively well preserved joint spaces. No osseous erosion or destruction. Grossly unremarkable soft tissues. RAD/Hand Min 3 Views IMPRESSION: No acute or aggressive osseous abnormality. Reading Location: [id number]
[2025-08-31 17:52] LABS: Hematocrit 40.5 % (37-47); Hemoglobin 12.7 g/dL (12.0-15.0); Immature Granulocytes Count 0.040 X10^3/uL (0.0-0.0); Mean Corp Hgb Conc 31.4 g/dL (32-36); Mean Corpuscular Volume 84.7 fL (81-99); Mean Platelet Vol. 10.4 fl (6.2-12.0); NRBC Flagged by Analyzer 0 % (0-5); Platelet Count 212 K/mm3 (150-450); RBC Distribution Width CV 16.4 % (11.6-14.6); RBC Distribution Width SD 51.2 fl (35.1-43.9); Red Blood Count 4.78 M/mm3 (4.2-5.4); White Blood Count 7.0 K/mm3 (4.4-11.0)
[2025-08-31 18:27] LABS: AST(SGOT) 23 U/L (<=31); Alanine Aminotransfer ALT/SGPT 25 U/L (<=34); Albumin, Serum 4.4 g/dL (3.4-4.8); Alkaline Phosphatase 103 U/L (35-104); Anion Gap 15 (5-15); BUN 23 mg/dL (4-19); BUN/Creat Ratio 22.5 RATIO (10-20); Calcium,Total 10.3 mg/dL (7.6-11.0); Carbon Dioxide 21.4 mmol/L (21.0-32.0); Chloride 104 mmol/L (98-108); Globulin 3.5 g/dL (2.2-4.2); Glucose 177 mg/dL (70-99); Hepatitis B Surface Antigen Nonreactive (Nonreactive); Hepatitis C Antibody Nonreactive (Nonreactive); Potassium 4.2 mmol/L (3.3-5.1)
== END | disposition home or self-care (01) ==
LOC: MTLAB 15:31
PROVIDERS: PCP Nurse Practitioner Family; Referring Provider Internal Medicine Rheumatology; Visit Provider Internal Medicine Rheumatology
DX: M06.4 Inflammatory polyarthropathy (principal); Z79.899 Other long term (current) drug therapy; M79.7 Fibromyalgia; M79.641 Pain in right hand; M79.642 Pain in left hand
CPT/HCPCS: 36415; 73130; 80053; 85025; 86200; 86431; 86706; 86803; 87340